=== PATIENT | female | born 1955 | race Caucasian/White ===

== ENCOUNTER → 2023-11-21 14:06 | Outpatient (REF) | payer OTHER, MEDICARE, SELFPAY | LOC: MRI 3T 14:06 | PROVIDERS: ATTENDING PHYSICIAN Anesthesiology | DX: M54.12 Radiculopathy, cervical region (principal) | CPT/HCPCS: 72141 ==

== ENCOUNTER 2024-01-07 10:08 | Emergency (ER) | payer MEDICARE, SELFPAY ==
[2024-01-07 10:15] VITALS: BP 141/81
[2024-01-07 10:48] VITALS: BMI 22.8
--- NOTE | 2024-01-07 10:53 | ED.GENMED ---
History of Present Illness
General
Chief Complaint: Abdominal Pain
Source: patient
Exam Limitations: none
Time Seen by Provider: 01/07/24 10:52
Nursing documentation reviewed up to this point in time: agreed with
History of Present Illness
History of Present Illness:
68 yo female from [place] w h/o GERD, Celiac disease, hysterectomy, R ventral hernia repair with mesh, Anxiety/Bipolar/Schizophrenia presents for one week of constant pain RLQ. Pain relieved when laying flat. Had few diarrheal stools past 2
days, had normal BM today. Denies UTI symptoms. Denies f/c/n/v.
Past History
Past History
ED Past Medical History: Cancer (Ovarian), GERD, Psychiatric (Paranoid schizophrenic) and Other (Arthritis, IBS, celiac disease)
ED Past Surgical History: , Gynecological (hysterectomy), Orthopedic and Other (R ventral hernia repair)
Social History
Tobacco: Non-smoker
Alcohol: None
Personal: Single
Living: group home
Review of Systems
Review of Systems
Allergies reviewed?: Yes
All Other Systems: ROS reviewed and negative except as documented in HPI and ROS
Constitutional: Denies fever
Respiratory: Denies trouble breathing
Cardiac: Denies chest pain
ABD/GI: Reports abdominal pain (RLQ); Denies nausea, vomiting, diarrhea, constipated or anorexia
: Denies dysuria, frequency, difficulty voiding or urgency
Musculoskeletal: Reports no symptoms
Skin: Reports no symptoms
Neurological: Reports no symptoms
Phy Exam
Physical Exam
Physical Exam:
GENERAL: No acute distress. A&Ox3.
CONSTITUTIONAL: Afebrile.
EYES: clear, conjunctivae normal
ENMT: moist mucus membranes, Pharynx nl
RESPIRATORY: Regular respirations, nonlabored, lungs clear.
CARDIOVASCULAR: Regular rate and rhythm, no murmurs, no rubs.
GI: Soft, palpable mass RLQ, nontender, normal BS
MUSCULOSKELETAL: Moves with ease. Well perfused.
SKIN: Warm, dry, pink
PSYCH: Normal mood and affect. Well kept, interactive and appropriate
NEUROLOGIC: Awake, alert and oriented. No focal neurological deficits
Course
Orders/Labs/Results
Orders:
Orders
01/07/24 10:18
IV Insert/Care/Rem.- Treatment PRN
01/07/24 11:05
CT Abd/pelvis W Iv Cont Urgent
Comment:
Reason For Exam: RLQ pain, hx ventral hernia repar there
01/07/24 11:08
Complete Blood Count/With Diff Urgent
Comprehensive Metabolic Panel Urgent
Lipase Urgent
Diphenhydramine [Benadryl] 50 mg IV NOW STA
Hydrocortisone Sod Succinate [Solu-Cortef] 200 mg IV NOW STA
01/07/24 12:55
Urinalysis Reflex To Culture Urgent
Date Specimen was Collected: 01/07/24
Time Specimen was Collected: 12:54
Abnormal Lab Results
01/07/24
11:08
MCH 32.6 H pg
(27.0-31.0)
Absolute Neuts (auto) 7.6 H 10^3/uL
(1.4-6.5)
Absolute Lymphs (auto) 0.6 L 10^3/uL
(1.2-3.4)
Neutrophils % 88.2 H %
(42.2-75.2)
Lymphocytes % 6.6 L %
(20.5-51.1)
Sodium 134 L mmol/L
(135-145)
Chloride 96 L mmol/L
(98-107)
Glucose 130 H mg/dl
(70-99)
Calcium 10.4 H mg/dl
(8.4-10.2)
Albumin 5.1 H g/dl
(3.5-5.0)
01/07/24 11:08
01/07/24 11:08
Vital Signs
Initial and Last Documented VS:
Initial Vital Signs
Temp Pulse Resp BP Pulse Ox
98 F 75 18 141/81 95
01/07/24 10:15 01/07/24 10:15 01/07/24 10:15 01/07/24 10:15 01/07/24 10:15
Last Documented Vital Signs
Temp Pulse Resp BP Pulse Ox
98 F 75 18 119/74 91
01/07/24 10:15 01/07/24 10:15 01/07/24 10:15 01/07/24 13:00 01/07/24 11:27
MDM/Problems Addressed
Differential Diagnosis Includes:
R ventral hernia, appendicitis
MDM/Problems Addressed:
68 yo female from [facility] w h/o GERD, Celiac disease, hysterectomy, R ventral hernia repair with mesh, Anxiety/Bipolar/Schizophrenia presents for one week of constant pain RLQ. Pain relieved when laying flat. Had few diarrheal stools past 2
days, had normal BM today. Denies UTI symptoms. Denies f/c/n/v.
CBC normal
CMP: normal
U/A neg
2:15 p.m.
Abd/Pelvis CT scan with IV contrast radiology report read: IMPRESSION:
1. Diffuse mildly prominent fluid-filled loops of small bowel favored to be on the basis of a nonspecific enteritis. Somewhat limited evaluation in the absence of oral contrast.
2. Colonic diverticulosis.
3. Stable mild intrahepatic and extrahepatic bile duct dilatation. Slightly increased mild main pancreatic duct dilatation. Correlation with laboratory values is recommended.
4. Severe aortobiiliac calcified atherosclerosis.
Patient still concerned because she feels a lump in the right lower quadrant not exactly where her pain is
I reviewed the entire CAT scan report with her and showing her that there is nothing serious or worrisome, she and her sister are still questioning
I called radiology Dr. Archibald and expressed their concern. He read looked at the film and states there is nothing to explain her pain there. He does state he sees the port in her upper right abdomen and it has a catheter that goes down into the
right lower abdomen/mesentery and she may be palpating that.
I went back into the patient's sister and explained this to them, they seemed unaware that the catheter went down into the lower abdomen.
I instructed them to follow-up with PCP if pain persist beyond 1 week as she may have enteritis.
At discharge, pt ambulated out with normal gait with sister
*Critical Care Note
Total Time (30-74mins, 75-104mins- exclusive of procedures): Not Applicable
ED Attending Note
-
Portions of this chart may have been created with voice recognition software.� Occasional wrong word or��sound alike� substitutions may have occurred due to the inherent limitations of voice recognition software.
Discharge Plan
Departure
Patient Disposition: Longterm/SNF
Date of Disposition: 01/07/24
Time of Disposition: 14:35
Patient with high blood pressure during this ER visit?: No
Condition: Good
Discharge Problem:
Abdominal pain, Enteritis
Instructions: Abdominal Pain
Prescriptions:
No Action
celecoxib 200 mg Capsule
200 mg PO BID
polyethylene glycol 3350 17 gram Powder In Packet
17 g PO DAILY PRN (Reason: constipation)
ibuprofen 200 mg Capsule
400 mg PO Q6H PRN (Reason: pain)
sertraline 100 mg Tablet
200 mg PO DAILY
lorazepam 0.5 mg Tablet
0.25 mg PO DAILY
docusate sodium 100 mg Capsule
100 mg PO BID
morphine 15 mg Tablet Extended Release
15 mg PO Q12H
gabapentin 100 mg Capsule
100 mg PO HS
nystatin 100,000 unit/gram Powder
1 applic TOPICAL BID
lorazepam 1 mg Tablet
0.5 mg PO HS
fluticasone propionate 50 mcg/actuation [place],Suspension
1 spray INTRANASAL DAILY
loratadine 10 mg Tablet
10 mg PO DAILY
aripiprazole 10 mg Tablet
10 mg PO HS
memantine 10 mg Tablet
10 mg PO BID
lubiprostone 8 mcg Capsule
8 mcg PO BID
lidocaine HCl-menthol 4-1 % Adhesive Patch,Medicated
1 patch TOPICAL DAILY
Rx Instructions:
back of neck
Referrals:
Melo Miller MD [Family Provider] - As needed
Activity Restrictions/Additional Instructions:
As we discussed, nothing worrisome in your work up here today
You may have a viral inflammation of your bowel that should improve within a week.
The port in your right upper abdomen has a catheter that extends down the right side of your abdomen down to the area where your scar is. Maybe the 'lump' you feel is that.
See your doctor for recheck if you are still having abdominal pain after one week
Interventions
Interventions:
*Risk Screen - Suicide Last Done: 01/07/24 10:15
*Neglect/Abuse Screening Last Done: 01/07/24 10:15
ED- Fall Risk Assessment Last Done: 01/07/24 10:49
*ED COVID-19 Vaccine History Last Done: 01/07/24 10:48
*Nursing Disposition Last Done: 01/07/24 14:49
QC-[id number]-[id number] Assessment Last Done: 01/07/24 10:59
Discharge Date and Time
Discharge Date/Time: 01/07/24 14:49
Print Language: ITALIAN
[2024-01-07 11:08] VITALS: BP 124/74
[2024-01-07 11:16] LABS: % Basophils 0.6 % (0-2); % Immature Granulocytes 0.3 % (0-0.5); % Lymphocytes 6.6 % (20.5-51.1); % Monocytes 4.3 % (1.7-9.3); % Neutrophils 88.2 % (42.2-75.2); Absolute Basophils 0.1 10^3/uL (0-0.2); Absolute Lymphocytes 0.6 10^3/uL (1.2-3.4); Absolute Monocytes 0.4 10^3/uL (0.1-0.6); Absolute Neutrophils 7.6 10^3/uL (1.4-6.5); Hematocrit 44.6 % (37.0-47.0); Hemoglobin 15.9 g/dL (12.0-16.0); Mean Corp Hgb Conc. 35.7 g/dL (33.0-37.0); Mean Corpuscular Hgb 32.6 pg (27.0-31.0); Mean Corpuscular Volume 91.6 fL (81.0-99.0); Nucleated Red Blood Cells % 0 %; Platelet Count 207 10^3/uL (130-400); Red Blood Cell Count 4.87 10^6/uL (4.20-5.40); Red Cell Dist. Width 11.9 % (11.5-14.5); White Blood Cell Count 8.6 10^3/uL (4.8-10.8)
[2024-01-07] MEDS: BENADRYL 50 MG IV (11:21)
[2024-01-07] MEDS: SOLU-CORTEF 200 MG IV (11:21)
[2024-01-07 11:31] LABS: ALT (SGPT) 19 U/L (0-35); AST (SGOT) 30 U/L (14-36); Albumin 5.1 g/dl (3.5-5.0); Alkaline Phosphatase 73 U/L (38-126); Blood Urea Nitrogen 15 mg/dl (7-17); Calcium 10.4 mg/dl (8.4-10.2); Carbon Dioxide 27 mmol/L (22-30); Chloride 96 mmol/L (98-107); Estimated Creatinine Clearance 73 ml/min; Glucose 130 mg/dl (70-99); Lipase 75 U/L (23-300); Sodium 134 mmol/L (135-145); Total Bilirubin 1.2 mg/dl (0.2-1.3); Total Protein 7.4 g/dl (6.3-8.2); eGFR > 60.00
[2024-01-07 12:56] VITALS: BP 133/73
[2024-01-07 13:00] VITALS: BP 119/74
[2024-01-07 13:05] LABS: Urine Albumin Negative (Neg - Trace); Urine Bilirubin Negative (Negative); Urine Character Clear (Clear); Urine Color Yellow; Urine Glucose Negative (Negative); Urine Ketone Negative (Negative); Urine Leukocyte Negative (Negative); Urine Nitrite Negative (Negative); Urine Occult Blood Negative (Negative); Urine Specific Gravity 1.015 (<1.030); Urine Urobilinogen Negative (Neg - 1+)
== END 2024-01-07 14:49 ==
LOC: EMR 10:08
PROVIDERS: Registered Nurse; EMERGENCY PHYSICIAN Emergency Medicine; FAMILY PHYSICIAN Internal Medicine
DX: K52.9 Noninfective gastroenteritis and colitis, unspecified (principal); R10.31 Right lower quadrant pain; K21.9 Gastro-esophageal reflux disease without esophagitis; K90.0 Celiac disease
CPT/HCPCS: 99285; 96374; 96375; 74177; 80053; 81003; 83690; 85025; Q9967

== ENCOUNTER 2024-03-20 06:35 | Day surgery (SDC) | payer MEDICARE, SELFPAY ==
[2024-03-20 10:03] VITALS: BP 112/70
[2024-03-20] MEDS: TYLENOL 1000 MG PO (10:28)
[2024-03-20 10:30] VITALS: BMI 22.8
[2024-03-20] MEDS: NORMOSOL-R/PLASMALYTE-A 1000 IV (10:35)
[2024-03-20 13:46] VITALS: BP 119/52
[2024-03-20 14:00] VITALS: BP 126/115
[2024-03-20 14:15] VITALS: BP 133/74
== END 2024-03-20 14:37 ==
LOC: SDS 06:35
PROVIDERS: ATTENDING PHYSICIAN Surgery
PROC: 0WPG33Z Removal of Infusion Device from Peritoneal Cavity, Percutaneous Approach (ICD-10-PCS; 2024-03-20)
PROC: 0JPT3WZ Removal of Totally Implantable Vascular Access Device from Trunk Subcutaneous Tissue and Fascia, Percutaneous Approach (ICD-10-PCS; 2024-03-20)
DX: C56.9 Malignant neoplasm of unspecified ovary (principal); C18.9 Malignant neoplasm of colon, unspecified; F20.0 Paranoid schizophrenia; K58.9 Irritable bowel syndrome, unspecified
CPT/HCPCS: 36590

== ENCOUNTER 2024-09-17 16:58 | Inpatient (IN) | payer MEDICARE, SELFPAY ==
[2024-09-17] VITALS (12 sets, daily range): BP systolic 113–176; BP diastolic 47–90; BMI 24.6
--- NOTE | 2024-09-17 10:10 | ED.GENMED ---
History of Present Illness
General
Chief Complaint: Cough
Source: patient
Exam Limitations: none
Time Seen by Provider: 09/17/24 10:00
History of Present Illness
History of Present Illness:
69-year-old female sudden onset of burning in her chest shortness of breath all started with swallowing her pills feeling like a pill got stuck and aspirated. This started hours ago. Patient was fine prior to this episode.
Past History
Past History
ED Past Medical History: Cancer (Ovarian), GERD, Psychiatric (Paranoid schizophrenic) and Other (Arthritis, IBS, celiac disease)
ED Past Surgical History: , Gynecological (hysterectomy), Orthopedic and Other (R ventral hernia repair)
Social History
Tobacco: Non-smoker
Alcohol: None
Personal: Single
Living: senior care
Phy Exam
Physical Exam
Physical Exam:
GENERAL: Alert and oriented. Audible wheezing and rhonchi noted.
EYE: Orbits normal.
NECK: Supple, no significant adenopathy.
ENT: Pharynx without erythema
CARDIAC: Regular rate and rhythm without any obvious murmurs.
LUNGS: Moderate tachypnea with audible expiratory wheezing and rhonchi
ABDOMEN: Soft, without focal tenderness or distention
NEUROLOGICAL: Alert and oriented , grossly non-focal
SKIN: Warm and dry, no rash or lesion, no discoloration, skin intact.
MUSCULOSKELETAL: No edema,no deformity.Good color
PSYCH: Normal and appropriate interaction.
Course
Orders/Labs/Results
Orders:
Orders
09/17/24 Lunch
Regular
09/17/24 10:08
Electrocardiogram (*1) Stat
Reason for Study: Other
Other Reason for Exam: chest pain
Cardiac Monitoring- Treatment ONCE
EKG- Treatment ONCE
IV Insert/Care/Rem.- Treatment PRN
Albuterol Sulfate [Ventolin Nebules] 7.5 mg INH R NOW STA
Ipratropium/Albuterol Sulfate [Duoneb] 3 ml INH R NOW ONE
CR Chest Portable - 1 View Urgent
Comment:
Reason For Exam: Sudden shortness of breath/aspiration
Reason Study Needs to be Portable: Patient Unstable
Pulse Ox/cont/shift [RESP] Stat
Quantity: 1
09/17/24 10:24
Ipratropium Nebs [Atrovent Nebules] 0.5 mg .ROUTE .STK-MED ONE
09/17/24 10:40
Basic Metabolic Panel Urgent
09/17/24 10:49
Complete Blood Count/With Diff Urgent
NT-proBNP Urgent
Troponin I Urgent
09/17/24 10:59
Dexamethasone Sod Phosphate [Decadron] 8 mg IV NOW STA
09/17/24 13:37
Albuterol Sulfate [Ventolin Nebules] 7.5 mg INH R NOW STA
O2 Therapy [RESP] Stat
Nasal Cannula Liter Flow: 2 LPM
Titrate/Wean O2 to maintain O2 sat greater than (%): 94
09/17/24 15:42
Admit/Transfer Patient As Directed
Co-Sign Provider:
Level of Care: Inpatient admission
Assign to:: Telemetry
Physician / Group: Leah Rudd
Diagnosis: Reactive airway disease following pill aspiration
Reason for Telemetry: Arrhythmia
Date to Stop Telemetry: 09/20/24
Time to Stop Telemetry: 11:00
Reason for Hospitalization: Reactive airway disease following pill aspiration
Expected length of stay greater than two midnights?: Yes
ELOS- Estimated Length of Stay in days: 2
I certify the patient meets the requirements for IP care: Yes
09/17/24 15:43
PRN Pain Medication Management As Directed
May give lesser potent ordered pain med per pt: Yes
preference::
Protocol:: Medication orders for pain may be administered in a
manner that supports deferring to patient preference
when the pt is:
- Requesting an ordered lesser potent pain medication.
Least to most potent pain medications are defined
as: acetaminophen < NSAID < tramadol < opioids
(morphine, oxycodone, hydromorphone).
- Requesting a lesser dose of the same medication IF
ORDERED.
- Requesting a less intrusive route of administration
if both routes are prescribed by the provider (PO <
IV).
09/17/24 15:47
Code Status As Directed
Resuscitation Status: Full Code
09/17/24 17:42
Acetaminophen [Tylenol] 650 mg PO Q4HPRN PRN
Albuterol Nebs [Ventolin Nebules] 2.5 mg INH R Q4HPRN PRN
Bisacodyl [Dulcolax] 10 mg RECTAL [id number] PRN
Docusate Sodium [Colace] 100 mg PO BIDPRN PRN constipation
Docusate W/Senna [Senokot-S] 1 tablet PO BIDPRN PRN
Ipratropium/Albuterol Sulfate [Duoneb] 3 ml INH R QID
Polyethylene Glycol Powder [Miralax] 17 grams PO DAILYPRN PRN
diclofenac sodium 40 drop TOPICAL Q6HPRN PRN
09/17/24 17:42
Activity As Directed
Activity Level: With Assistance
Vital Signs As Directed
Frequency: Per unit guidelines
DX Deep Vein Thrombosis Video Routine
09/17/24 18:00
Dexamethasone Sod Phosphate [Decadron] 4 mg IV Q6H
Enoxaparin Sodium [Lovenox] 40 mg SC QPM
09/17/24 20:00
Lorazepam [Ativan] 0.5 mg PO BID
Memantine HCl [Namenda] 10 mg PO BID
Morphine Sulfate Extended Rel. [Ms Contin (Extended Release)] 15 mg PO Q12
lubiprostone 8 mcg PO BID
09/17/24 22:00
Aripiprazole [Abilify] 10 mg PO HS
Gabapentin [Neurontin] 100 mg PO HS
Mirtazapine [Remeron] 22.5 mg PO HS
09/18/24 06:26
Complete Blood Count/No Diff IN AM
09/18/24 08:00
Lidocaine [Lidocaine 4% Patch] 1 patch TOPICAL DAILY
Loratadine [Claritin] 10 mg PO DAILY
Meloxicam [Mobic] 15 mg PO DAILY
Polyethylene Glycol Powder [Miralax] 17 grams PO DAILY
Sertraline HCl [Zoloft] 200 mg PO DAILY
09/19/24 08:22
Complete Blood Count/No Diff IN AM
09/20/24 06:41
Basic Metabolic Panel IN AM
Complete Blood Count/No Diff IN AM
09/20/24 11:00
DC Protocol for Telemetry ONCE
Abnormal Lab Results
09/17/24 09/17/24
10:40 10:49
MCH 31.7 H pg
(27.0-31.0)
Absolute Neuts (auto) 8.0 H 10^3/uL
(1.4-6.5)
Absolute Lymphs (auto) 0.4 L 10^3/uL
(1.2-3.4)
Neutrophils % 89.4 H %
(42.2-75.2)
Lymphocytes % 4.8 L %
(20.5-51.1)
Sodium 131 L mmol/L
(135-145)
Chloride 94 L mmol/L
(98-107)
BUN 19 H mg/dl
(7-17)
Glucose 122 H mg/dl
(70-99)
09/17/24 10:49
09/17/24 10:49
Vital Signs
Initial and Last Documented VS:
Initial Vital Signs
Temp Pulse Resp BP Pulse Ox
98.0 F 87 16 176/90 98
09/17/24 09:29 09/17/24 09:29 09/17/24 09:29 09/17/24 09:29 09/17/24 09:29
Last Documented Vital Signs
Temp Pulse Resp BP Pulse Ox
98.7 F 94 18 136/75 95
09/21/24 13:51 09/21/24 13:51 09/21/24 13:51 09/21/24 13:51 09/21/24 13:51
MDM/Problems Addressed
Differential Diagnosis Includes:
Patient in moderate respiratory distress. Audible wheezing and rhonchi. All started suddenly with swallowing the pill. She has no drooling or stridor. She has a slight hoarseness to her voice. Will start with x-ray labs respiratory nebulizers.
Workup in progress
*Pulse Oximetry
SaO2: 98
Oxygen Mode of Delivery: Room air
Patient hypoxic: no
*EKG
Interpreted by ED Provider?: Yes
Interpretation: normal
Comparison EKG: no changes
Heart Rate: 82
Rate: normal
Rhythm: sinus
[place]: normal axis
Interval: normal interval
QRS Pattern: normal QRS
Ischemia: no ischemia
*Wort Extractor Interpretation
Rate: normal
Interpretation: normal
Heart Rate: 80
Rhythm: sinus
*Critical Care Note
Total Time (30-74mins, 75-104mins- exclusive of procedures): 40
Update Note
Update Note:
1100.. Patient rechecked. Appears much more comfortable still with diffuse expiratory wheezing however.
1137... Doing better but still with expiratory wheezing. Warrants inpatient management
1340.... Patient rechecked. Awaiting admission. Appears improved from initial arrival however pulse ox's are running 90 to 91%. Still has diffuse wheezing. Will place on oxygen and repeat nebulizers
ED Attending Note
-
Portions of this chart may have been created with voice recognition software.� Occasional wrong word or��sound alike� substitutions may have occurred due to the inherent limitations of voice recognition software.
Discharge Plan
Departure
Patient Disposition: Admit
Date of Disposition: 09/17/24
Time of Disposition: 11:37
Presentation/result/management discussed w/ accepting MD/DO: Hospitalist
Discharge Problem:
Respiratory distress, Pill aspiration, Triggering reactive airway
Interventions
Interventions:
*Risk Screen - Suicide Last Done: 09/17/24 09:38
*General Assessment Last Done: 09/17/24 09:38
*Neglect/Abuse Screening Last Done: 09/17/24 09:38
*ED COVID-19 Vaccine History Last Done: 09/17/24 17:49
*Nursing Disposition Last Done: 09/17/24 17:47
ED- Pulmonary Assessment Last Done: 09/17/24 10:35
Discharge Date and Time
Discharge Date/Time: 09/17/24 17:48
[2024-09-17] MEDS: VENTOLIN NEBULES 7.5 MG INH ×2 (10:34→13:44)
[2024-09-17] MEDS: DUONEB 3 ML INH ×2 (10:34→19:15)
[2024-09-17 10:59] LABS: Hematocrit 44.1 % (37.0-47.0); Hemoglobin 15.2 g/dL (12.0-16.0); Mean Corp Hgb Conc. 34.5 g/dL (33.0-37.0); Mean Corpuscular Volume 92.1 fL (81.0-99.0); Nucleated Red Blood Cells % 0 %; Platelet Count 179 10^3/uL (130-400); Red Cell Dist. Width 11.9 % (11.5-14.5)
[2024-09-17 11:34] LABS: Troponin I < 0.012 ng/ml
[2024-09-17] MEDS: DECADRON 8 MG IV (11:47)
--- NOTE | 2024-09-17 12:05 | HPS.HSE ---
Family Physician
-
Family Physician: SUSAN LINARES MD
Chief Complaint
-
SOB/wheezing
History of Present Illness
69F GERD Schizophrenia Arthritis IBS Hysterectomy Hernia Repair presents w/ sob wheezing following aspiration event at home involving her morning pill medications. Reported pill 'going down wrong pipe' resulting in coughing sob wheezing prompting
ED evaluation- was in her usual state of health prior to aspiration event. CXR noted no acute abn's. Patient was treated with nebulizer treatments and IV decadron leading to improvement of symptoms though not resolved. Stable vital signs on
oxygen supplementation.
Medical History
Past Medical History
Past Medical History: Reports Other
Additional Past Medical History:
as above
Past Surgical History: Reports Other
Social History
Tobacco: Former Smoker
Alcohol: None
Drug: None
Personal: Single
Employment: Retired
Family History
Family History: Not pertinent (reviewed)
Allergies / Home Medications
Allergies reflects when Allergies were last updated in [email or web address].
Home Medications with original date entered in [email or web address]
Allergy/Medication List:
Allergies
Allergy/AdvReac Type Severity Reaction Status Date / Time
cat dander Allergy Unknown Verified 09/17/24 09:41
gluten Allergy Unknown Verified 09/17/24 09:41
iodine Allergy Unknown Verified 09/17/24 09:41
Phenothiazines Allergy Unknown Verified 09/17/24 09:41
shellfish derived Allergy Unknown Verified 09/17/24 09:41
tetracycline Allergy Unknown Verified 09/17/24 09:41
Home Medications
aripiprazole 10 mg tablet 10 mg PO HS 01/07/24
docusate sodium 100 mg capsule 100 mg PO BIDPRN PRN constipation 01/07/24
fluticasone propionate 50 mcg/actuation nasal spray,suspension 1 spray intranasal DAILY 01/07/24
gabapentin 100 mg capsule 100 mg PO HS 01/07/24
loratadine 10 mg tablet 10 mg PO DAILY 01/07/24
lorazepam 0.5 mg tablet 0.5 mg PO BID 01/07/24
lubiprostone 8 mcg capsule 8 mcg PO BID 01/07/24
memantine 10 mg tablet 10 mg PO BID 01/07/24
polyethylene glycol 3350 17 gram oral powder packet 17 g PO DAILY constipation 01/07/24
lidocaine 4 %-menthol 4 % topical patch 1 patch topical DAILY back of neck 03/18/24
mirtazapine 15 mg tablet 22.5 mg PO HS 03/18/24
sertraline 100 mg tablet 200 mg PO DAILY 03/18/24
diclofenac sodium 1.5 % topical drops 40 drp topical Q6HPRN PRN back of neck pain 09/17/24
meloxicam 15 mg tablet 15 mg PO DAILY 09/17/24
morphine 15 mg tablet,extended release 15 mg PO Q12H 09/17/24
Review of Systems
-
A 12 point ROS was completed and negative except as noted: Yes
Constitutional: Reports Other (as below)
Physical Exam
Vital Signs
Vital Signs
Temp Pulse Resp BP Pulse Ox
98.0 F 88 25 148/76 95
09/17/24 09:29 09/17/24 11:45 09/17/24 11:45 09/17/24 11:00 09/17/24 11:45
Physical Exam
General: Other (as below)
Laboratory Results
-
09/17/24 10:49
09/17/24 10:49
Laboratory Results
Troponin I < 0.012 ng/ml 09/17/24 10:49
Impression/Plan
-
ROS
General: Denies fever chills night sweats unexpected weight loss
Neuro: Denies seizure shaking loss of consciousness dizziness vertigo
Psych: denies depression hallucinations confusion manic episodes
Endocrine: Denies polyuria polydipsia polyphagia heat/cold intolerance
HEENT: Denies blindness visual disturbances epistaxis
Pulmonary: SOB wheezing
Cardiovascular: denies chest pain palpitations leg swelling
Hematology: denies signs symptoms of anemia easy bruising/bleeding
Gastrointestinal: denies nausea vomiting diarrhea constipation hematemesis hematochezia melena
Genito-Urinary: denies retention incontinence dysuria
Musculoskeletal: denies joint pain weakness
Dermatology: denies rash laceration bruising
Physical Exam
General: No pallor, cyanosis, or jaundice.
HEENT: Throat clear. PERRLA Normocephalic atraumatic
NECK: Supple. No JVD Carotid Bruits
RESPIRATORY: diffusely wheezing on oxygen supplementation
CVS: S1, S2 normal. RRR. No murmur, rub or gallop.
ABDOMEN: Soft, non-tender. No distension. BS+/normal.
EXTREMITIES: No peripheral cyanosis or edema.
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
IMPRESSION:
69F GERD Schizophrenia Arthritis Chronic Pain IBS Hysterectomy Hernia Repair presents w/ sob wheezing following aspiration event at home involving her morning pill medications. Reported pill 'going down wrong pipe' resulting in coughing sob
wheezing prompting ED evaluation- was in her usual state of health prior to aspiration event. CXR noted no acute abn's. Patient was treated with nebulizer treatments and IV decadron leading to improvement of symptoms though not resolved. Stable
vital signs on oxygen supplementation.
PLAN:
#Pill aspiration event
#SOB wheezing concerning for reactive airway dz
Tele admit
denies hx asthma, former smoker
CXR no acute abn's, follow up repeat in AM
Pulm eval
Duoneb R QID
albuterol prn
received 8 mg IV Decadron in ED
IV decadron 4 mg Q6h
Incentive Spirometer
Speech eval
aspiration precautions
#Chronic Pain
#Arthritis
cont home PO Morphine Neurontin Meloxicam
prn Tylenol
#Schizophrenia
cont home abilify, mirtazapine, ativan, sertraline
#IBS
cont home lubiprostone (patient's own med if necessary)
DVT ppx Lovenox
Full Code
I spent a total of 80 minutes with the patient or on the floor. More than 50% of this time involved counseling and coordination of care.
[2024-09-17 12:18] LABS: Blood Urea Nitrogen 19 mg/dl (7-17); Calcium 9.3 mg/dl (8.4-10.2); Carbon Dioxide 29 mmol/L (22-30); Chloride 94 mmol/L (98-107); Estimated Creatinine Clearance 84 ml/min; Glucose 122 mg/dl (70-99); Sodium 131 mmol/L (135-145); eGFR > 60.00
[2024-09-17] MEDS: TYLENOL 650 MG PO (18:04)
[2024-09-17] MEDS: DECADRON 4 MG IV ×2 (18:04→23:59)
[2024-09-17] MEDS: LOVENOX 40 MG SC (18:04)
[2024-09-17] MEDS: DUONEB INH (18:42)
[2024-09-17] MEDS: ATIVAN 0.5 MG PO (19:53)
[2024-09-17] MEDS: NAMENDA 10 MG PO (19:54)
[2024-09-17] MEDS: MS CONTIN (EXTENDED RELEASE) 15 MG PO (19:54)
[2024-09-17] MEDS: ABILIFY 10 MG PO (22:13)
[2024-09-17] MEDS: REMERON 22.5 MG PO (22:14)
[2024-09-17] MEDS: NEURONTIN 100 MG PO (22:14)
[2024-09-18 03:40] VITALS: BP 128/71
[2024-09-18] MEDS: DECADRON 4 MG IV ×4 (05:59→23:47)
[2024-09-18 06:44] LABS: Hematocrit 41.4 % (37.0-47.0); Hemoglobin 14.5 g/dL (12.0-16.0); Mean Corp Hgb Conc. 35.0 g/dL (33.0-37.0); Mean Corpuscular Volume 91.2 fL (81.0-99.0); Platelet Count 189 10^3/uL (130-400); Red Cell Dist. Width 11.9 % (11.5-14.5)
[2024-09-18 07:11] LABS: Blood Urea Nitrogen 14 mg/dl (7-17); Calcium 10.5 mg/dl (8.4-10.2); Carbon Dioxide 30 mmol/L (22-30); Chloride 99 mmol/L (98-107); Estimated Creatinine Clearance 84 ml/min; Glucose 138 mg/dl (70-99); Magnesium 1.8 mg/dl (1.6-2.3); Potassium 4.9 mmol/L (3.5-5.1); Sodium 135 mmol/L (135-145); eGFR > 60.00
--- NOTE | 2024-09-18 07:24 | W.PN.HOSP.TC ---
Today's Communication/Plan
-
Augmentin
cont steroids bronchodilators
wean O2 supplementation as tolerated
mucinex, prn robitussin
Pain control
Assessment / Plan
Assessment / Plan
Physical Exam
General: No pallor, cyanosis, or jaundice.
HEENT: Throat clear. PERRLA Normocephalic atraumatic Maxillary sinuses tender to palpation
NECK: Supple. No JVD Carotid Bruits, cervical lymphadenopathy noted
RESPIRATORY: diffusely wheezing on oxygen supplementation
CVS: S1, S2 normal. RRR. No murmur, rub or gallop.
ABDOMEN: Soft, non-tender. No distension. BS+/normal.
EXTREMITIES: No peripheral cyanosis or edema.
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
IMPRESSION:
69F [facility] GERD Schizophrenia Arthritis Chronic Pain IBS Hysterectomy Hernia Repair presents w/ sob wheezing following aspiration event at home involving her morning pill medications. Reported pill 'going down wrong pipe'
resulting in coughing sob wheezing prompting ED evaluation- was in her usual state of health prior to aspiration event. CXR noted no acute abn's. Patient was treated with nebulizer treatments and IV decadron leading to improvement of symptoms
though not resolved. Stable vital signs on oxygen supplementation.
PLAN:
#Pill aspiration event
#SOB wheezing concerning for reactive airway dz
#Aspiration PNA
#Sinusitis
#post-nasal drip
#sore throat
Tele admit
denies hx asthma, Former smoker
wean O2 supplementation as tolerated
CXR no acute abn's, follow up repeat in AM noted mild RLL PNA (correlates with aspiration hx)
mild leukocytosis, afebrile, Augmentin 875 mg BID started 09/18
Pulm eval
Duoneb R QID albuterol prn
IV Decadron 4 mg Q6h
Incentive Spirometer, Acapella
Speech eval appreciated appropriate regular diet
aspiration precautions
Cepacol prn
sputum cx
Mucinex, prn Robitussin
[place] mist Nasal spray
Claritin
#Chronic Pain
#Arthritis
cont home PO Morphine Neurontin Meloxicam
prn Tylenol, Ibuprofen
#Schizophrenia
cont home abilify, mirtazapine, ativan, sertraline
#IBS
cont home lubiprostone (patient's own med if necessary)
DVT ppx Lovenox
Full Code
I spent a total of 50 minutes with the patient or on the floor. More than 50% of this time involved counseling and coordination of care.
Anticipated Discharge: 24 - 48 hours
Subjective/Interval History
-
Date of Service: September 18, 2024
no acute distress sitting up comfortably in bed. Oxygen supplementation weaning down. reports sore throat and cough w/ productive sputum. Also reports tenderness sinusitis.
Objective Data
-
Labs:
Laboratory Results
09/18/24
06:26
WBC 12.7 H
Hgb 14.5
Hct 41.4
Plt Count 189
Sodium 135
Potassium 4.9
Chloride 99
Carbon Dioxide 30
BUN 14
Creatinine 0.6
Glucose 138 H
Calcium 10.5 H
Vital Signs:
Vital Signs
Temp Pulse Resp BP Pulse Ox
97.9 F 76 16 128/71 97
09/18/24 03:40 09/18/24 03:40 09/18/24 03:40 09/18/24 03:40 09/18/24 03:40
I&O
09/17/24 09/18/24 09/19/24
06:59 06:59 06:59
Intake Total 480 / 480
Balance 480 / 480
[2024-09-18] MEDS: DUONEB 3 ML INH ×4 (07:31→19:11)
[2024-09-18] MEDS: MS CONTIN (EXTENDED RELEASE) 15 MG PO ×2 (07:32→19:45)
[2024-09-18] MEDS: NAMENDA 10 MG PO ×2 (07:32→20:35)
[2024-09-18] MEDS: LIDOCAINE 4% PATCH 1 PATCH TOPICAL (07:32)
[2024-09-18] MEDS: ATIVAN 0.5 MG PO ×2 (07:32→19:44)
[2024-09-18] MEDS: CLARITIN 10 MG PO (07:32)
[2024-09-18] MEDS: MOBIC 15 MG PO (07:32)
[2024-09-18] MEDS: MIRALAX PO (07:32)
[2024-09-18] MEDS: ZOLOFT 200 MG PO (07:32)
[2024-09-18 07:45] VITALS: BP 135/59
--- NOTE | 2024-09-18 09:40 | PTOTSP ---
Speech Therapy Evaluation:
Pt presents with functional oropharyngeal swallow at bedside. INTERNATIONAL TRADE COMPLIANCE MANAGER service consulted 2/2 pill aspiration, in which pt reported was an isolated event. She denied trouble with pills one at a time. Vocal quality hoarse and throat sore due to pt reported
hacking during aspiration event. CXR now with RLL PNA, WBC elevated, and pt on 3LO2 via nasal cannula. Pt passed 3oz swallow screen and denied previous hx of dysphagia or pneumonia
Recommend:
1. Regular solids and thin liquids
2. Meds as tolerated one at a time
3. General aspiration precautions
4. INTERNATIONAL TRADE COMPLIANCE MANAGER to follow to monitor tolerance of diet, likely brief
--- NOTE | 2024-09-18 10:40 | CM ---
Patient seen at bedside
IA completed
Resides at [facility]
PLOF: independent, no assistive device
Denies DME
Denies VN/Rehab
Denies insecurities
Spoke with Cyndi at [facility] & updated
PCP: Sandra Hale
Pharmacy: [facility]
PLAN: [facility] when stable
Report: [phone] Fax #: [phone]
[2024-09-18 11:11] VITALS: BP 134/65
[2024-09-18 12:35] LABS: ALT (SGPT) 18 U/L (0-35); AST (SGOT) 27 U/L (14-36); Albumin 4.9 g/dl (3.5-5.0); Alkaline Phosphatase 61 U/L (38-126); Total Protein 7.1 g/dl (6.3-8.2)
[2024-09-18] MEDS: MUCINEX 600 MG PO ×2 (13:33→20:35)
[2024-09-18] MEDS: AUGMENTIN 250 MG/5 ML 875 MG PO ×2 (13:33→20:56)
[2024-09-18] MEDS: OCEAN, SALINE MIST 2 SPRAYS NASAL ×3 (13:33→22:07)
[2024-09-18] MEDS: PROTONIX 40 MG PO (13:33)
[2024-09-18 15:47] VITALS: BP 135/71
[2024-09-18] MEDS: LOVENOX SC (17:31)
[2024-09-18 19:32] VITALS: BP 129/65
[2024-09-18] MEDS: ANESTHETIC LOZENGE 1 LOZENGE PO (21:00)
[2024-09-18] MEDS: ABILIFY 10 MG PO (22:02)
[2024-09-18] MEDS: NEURONTIN 100 MG PO (22:02)
[2024-09-18] MEDS: REMERON 22.5 MG PO (22:06)
[2024-09-18 23:16] VITALS: BP 145/66
[2024-09-19] VITALS (7 sets, daily range): BP systolic 116–152; BP diastolic 60–76; PULSE 90; O2SAT 97
[2024-09-19] MEDS: DECADRON 4 MG IV (05:49)
--- NOTE | 2024-09-19 06:48 | W.PN.HOSP.TC ---
Today's Communication/Plan
-
decadron switched to PO prednisone
cont bronchodilators antibiotic
NPO after midnight for possible benefit bronchoscopy as per Pulm
Assessment / Plan
Assessment / Plan
Physical Exam
General: No pallor, cyanosis, or jaundice.
HEENT: Throat clear. PERRLA Normocephalic atraumatic Maxillary sinuses tender to palpation
NECK: Supple. No JVD Carotid Bruits, cervical lymphadenopathy noted
RESPIRATORY: diffusely wheezing on oxygen supplementation
CVS: S1, S2 normal. RRR. No murmur, rub or gallop.
ABDOMEN: Soft, non-tender. No distension. BS+/normal.
EXTREMITIES: No peripheral cyanosis or edema.
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
IMPRESSION:
69F [facility] GERD Schizophrenia Arthritis Chronic Pain IBS Hysterectomy Hernia Repair presents w/ sob wheezing following aspiration event at home involving her morning pill medications. Reported pill 'going down wrong pipe'
resulting in coughing sob wheezing prompting ED evaluation- was in her usual state of health prior to aspiration event. CXR noted no acute abn's. Patient was treated with nebulizer treatments and IV decadron leading to improvement of symptoms
though not resolved. Stable vital signs on oxygen supplementation.
PLAN:
#Pill aspiration event (later reported coughing out the aspirated pill, few days following admission)
#SOB wheezing concerning for reactive airway dz
#Acute hypoxic respiratory failure
#Aspiration PNA
#Sinusitis
#post-nasal drip
#sore throat
Tele admit
denies hx asthma, Former smoker
wean O2 supplementation as tolerated
CXR no acute abn's, follow up repeat in AM noted mild RLL PNA (correlates with aspiration hx)
mild leukocytosis, afebrile, Augmentin 875 mg BID started 09/18
Pulm bertram appreciated npo after midnight for possible benefit bronchoscopy tomorrow Wednesday 09/20
CT chest appreciated RLL consolidation bronchus occlusion, 4mm peripheral lung nodule (follow up CT in 12 mo recommended), Compression fx's T8 (new) and T12 (present since 2021).
Duoneb R QID albuterol prn
IV Decadron 4 mg Q6h transitioned to PO prednisone 40 mg daily
Incentive Spirometer, Acapella
Speech eval appreciated appropriate regular diet
aspiration precautions
Cepacol prn
sputum cx
Mucinex, prn Robitussin
[place] mist Nasal spray
Claritin
#Chronic Pain
#Arthritis
cont home PO Morphine Neurontin Meloxicam
prn Tylenol, Ibuprofen
#Schizophrenia
cont home abilify, mirtazapine, ativan, sertraline
#IBS
cont home lubiprostone (patient's own med if necessary)
DVT ppx Lovenox
Full Code
I spent a total of 45 minutes with the patient or on the floor. More than 50% of this time involved counseling and coordination of care.
Anticipated Discharge: 24 - 48 hours
Subjective/Interval History
-
Date of Service: September 19, 2024
Reports feeling better, coughed up her aspirated pill. Stable respiratory status on room air.
Objective Data
-
Labs:
Laboratory Results
09/19/24
06:00
WBC Pending
Hgb Pending
Hct Pending
Plt Count Pending
Sodium Pending
Potassium Pending
Chloride Pending
Carbon Dioxide Pending
BUN Pending
Creatinine Pending
Glucose Pending
Calcium Pending
Vital Signs:
Vital Signs
Temp Pulse Resp BP Pulse Ox
97.4 F 73 16 126/65 97
09/19/24 03:30 09/19/24 03:30 09/19/24 03:30 09/19/24 03:30 09/19/24 03:30
I&O
09/17/24 09/18/24 09/19/24
06:59 06:59 06:59
Intake Total 480 / 480 1919
Balance 480 / 480 1919
[2024-09-19] MEDS: DUONEB 3 ML INH ×4 (07:21→19:46)
[2024-09-19] MEDS: LIDOCAINE 4% PATCH 1 PATCH TOPICAL (07:33)
[2024-09-19] MEDS: PROTONIX 40 MG PO (07:33)
[2024-09-19] MEDS: CLARITIN 10 MG PO (07:33)
[2024-09-19] MEDS: AUGMENTIN 250 MG/5 ML 875 MG PO ×2 (07:33→20:27)
[2024-09-19] MEDS: ZOLOFT 200 MG PO (07:33)
[2024-09-19] MEDS: MUCINEX 600 MG PO ×2 (07:34→20:27)
[2024-09-19] MEDS: MOBIC 15 MG PO (07:34)
[2024-09-19] MEDS: NAMENDA 10 MG PO ×2 (07:34→20:27)
[2024-09-19] MEDS: ATIVAN 0.5 MG PO ×2 (07:34→20:27)
[2024-09-19] MEDS: MS CONTIN (EXTENDED RELEASE) 15 MG PO ×2 (07:34→20:27)
[2024-09-19] MEDS: OCEAN, SALINE MIST 2 SPRAYS NASAL ×4 (07:34→21:06)
[2024-09-19] MEDS: MIRALAX 17 GRAMS PO (07:35)
[2024-09-19 09:04] LABS: Hematocrit 43.2 % (37.0-47.0); Hemoglobin 14.9 g/dL (12.0-16.0); Mean Corp Hgb Conc. 34.5 g/dL (33.0-37.0); Mean Corpuscular Volume 92.3 fL (81.0-99.0); Platelet Count 193 10^3/uL (130-400); Red Cell Dist. Width 12.2 % (11.5-14.5)
--- NOTE | 2024-09-19 09:51 | CON.PUL ---
Consultation
Consultation Request
Date/Time Consultation Requested: 09/19/2024-7:30 AM
Date/Time Consultation Performed: 09/19/2024-8 AM
Requesting Provider: Hospitalist
Performing Provider: Dr. Soriano
Reason for Consultation: Pill aspiration and pneumonia
Medical History
-
Chief Complaint: Shortness of breath
History of Present Illness:
69-year-old former smoking female with a history of schizophrenia, reflux, IBS, hysterectomy and hernia repair presenting with shortness of breath following an aspiration event at home involving her morning pill medication-pulmonary consulted for
pneumonia and aspiration of the lastpill 09/19/2024.. The patient states that she has some wheezing and some shortness of breath. She states that she had a coughing fit this morning and coughed up a 'white pill'. She denies any shortness of
breath, chest pain, abdominal pain, leg swelling.
Past Medical History
Past Medical History: None (Schizophrenia. Arthritis. Irritable bowels. Hysterectomy. Hernia repair. Former smoker. Ovarian cancer. GERD. Depression. Chronic pain syndrome. Fibroid tumor removal. Left axillary lipoma excision. C-spine
fusion. Left inguinal hernia repair. Chemo-Port placement.)
Social History
Tobacco: Former Smoker (Less than 15-[id number]-ffes quit many years ago)
Alcohol: None
Drug: None
Personal: Single
Employment: Retired
Occupational Exposures: No known asbestos exposure
Environmental Exposures: No known tuberculosis exposure
Family History
Family History: Reviewed & Not Pertinent
Allergies / Home Medications
Allergies
Allergy/AdvReac Type Severity Reaction Status Date / Time
cat dander Allergy Unknown Verified 09/17/24 09:41
gluten Allergy Unknown Verified 09/17/24 09:41
iodine Allergy Unknown Verified 09/17/24 09:41
Phenothiazines Allergy Unknown Verified 09/17/24 09:41
shellfish derived Allergy Unknown Verified 09/17/24 09:41
tetracycline Allergy Unknown Verified 09/17/24 09:41
Home Medications
�Medication �Instructions �Recorded �Confirmed �Last Taken �Type
aripiprazole 10 mg tablet 10 mg PO HS Mental Health/Anxiety 01/07/24 09/17/24 03/19/24 21:00 History
docusate sodium 100 mg capsule 100 mg PO BIDPRN PRN constipation 01/07/24 09/17/24 03/20/24 07:00 History
fluticasone propionate 50 1 spray intranasal DAILY Allergies 01/07/24 09/17/24 09/17/24 History
mcg/actuation nasal
spray,suspension
gabapentin 100 mg capsule 100 mg PO HS Neurological Condition 01/07/24 09/17/24 03/19/24 21:00 History
loratadine 10 mg tablet 10 mg PO DAILY Allergies 01/07/24 09/17/24 09/17/24 History
lorazepam 0.5 mg tablet 0.5 mg PO BID Mental Health/Anxiety 01/07/24 09/17/24 09/17/24 History
lubiprostone 8 mcg capsule 8 mcg PO BID Gastrointestinal Issue 01/07/24 09/17/24 09/17/24 History
memantine 10 mg tablet 10 mg PO BID Mental Health/Anxiety 01/07/24 09/17/24 09/17/24 History
polyethylene glycol 3350 17 gram 17 g PO DAILY constipation 01/07/24 09/17/24 09/17/24 History
oral powder packet
lidocaine 4 %-menthol 4 % topical 1 patch topical DAILY back of neck 03/18/24 09/17/24 03/19/24 History
patch
mirtazapine 15 mg tablet 22.5 mg PO HS Mental Health/Anxiety 03/18/24 09/17/24 03/19/24 History
sertraline 100 mg tablet 200 mg PO DAILY Depression 03/18/24 09/17/24 09/17/24 History
diclofenac sodium 1.5 % topical 40 drp topical Q6HPRN PRN back of 09/17/24 09/17/24 Unknown History
drops neck pain
meloxicam 15 mg tablet 15 mg PO DAILY Anti-Inflammatory 09/17/24 09/17/24 09/17/24 History
morphine 15 mg tablet,extended 15 mg PO Q12H Pain 09/17/24 09/17/24 09/17/24 History
release
Review of Systems
-
Unable to Obtain full review of systems at this time due to: Other ( per HPI)
Vitals / Labs / Diagnostic Testing
Vital Signs
Temp Pulse Resp BP Pulse Ox
98.2 F 80 18 148/71 93
09/19/24 07:00 09/19/24 07:22 09/19/24 07:22 09/19/24 07:00 09/19/24 07:22
Lab Data
09/19/24 08:22
Diagnostic Testing:
Physical Exam
-
Exam:
Well-nourished and well-developed in no apparent distress
HEENT-atraumatic, normocephalic
Neck-supple, no JVD, no bruit
Heart-regular rate and rhythm-no murmurs, rubs or gallops
Chest with crackles and wheezes posterior right midlung field
Abdomen-soft, nontender, nondistended, no hepatosplenomegaly
Extremities-no cyanosis, clubbing, edema and good peripheral pulses
Integument-intact, no rashes, lesions or ecchymosis
Neurology-alert and oriented, nonfocal motor and sensory exam
Assessment
-
69-year-old former smoking female with a history of schizophrenia, reflux, IBS, hysterectomy and hernia repair presenting with shortness of breath following an aspiration event at home involving her morning pill medication-pulmonary consulted for
pneumonia and aspiration of the pill 09/19/2024.
Pill aspiration 09/17/2024-reports coughing up 'white pill' 09/15/2024
Aspiration pneumonia
Asthma with acute exacerbation
Leukocytosis
Ocochxzdzgkt-xcsb-vqtkn sodium 132
Hyperglycemia-blood sugar 163
Conditions present prior to admission:
Schizophrenia.
Arthritis.
Irritable bowels.
Hysterectomy.
Hernia repair.
Former smoker.
Ovarian cancer.
GERD.
Depression.
Chronic pain syndrome.
Fibroid tumor removal. Left axillary lipoma excision. C-spine fusion. Left inguinal hernia repair. Chemo-Port placement.
Plan
Respiratory decompensation after medication pill aspiration-patient reports having coughing fit this morning and coughing up a 'white pill'
Supplemental oxygen as needed
Aspiration precautions
Nebulizers
Prednisone 40 mg daily
Mucolytic's
Mucus clearing devices
CT chest
Consider bronchoscopy, however, it appears as though the patient coughed up her aspirated medication pill
Check cultures
Empiric antibiotics
Follow radiographically
Monitor blood sugar
Insulin supplementation as needed
DVT prophylaxis-on Lovenox
GI prophylaxis-on pantoprazole
Nutrition
Early mobilization
Outpatient pulmonary follow-up with PFTs, asthma evaluation, follow-up of pneumonia
Diagnostic data:
Chest x-ray 09/17/2024-unremarkable chest
Chest x-ray 09/18/2024-mild right lower lobe pneumonia
CT chest abdomen and pelvis/-no evidence for metastatic disease in the chest abdomen or pelvis, left-sided Port-A-Cath placed left subclavian, chronic scarring in the lingula, no solid pulmonary nodules
CT abdomen and pelvis 01/07/2024-diffuse mildly prominent fluid-filled loops of small bowel, diverticulosis,
Data Reviewed
-
EKG: Report reviewed by me
Radiology: Image personally visualized and interpreted and Report reviewed by me
Medical Tests (Nuc Med, Echo etc): Report reviewed by me
Labs: Labs reviewed by me
Old Records: Reviewed
Total Time Spent with Patient (in minutes): 60
--- NOTE | 2024-09-19 10:36 | PTOTSP ---
pt currently requires no assistance to complete simple ADLs, functional transfers, ambulation. no overt deficits, weakness noted. no acute OT needs identified, will sign off.
[2024-09-19 10:45] LABS: Blood Urea Nitrogen 17 mg/dl (7-17); Calcium 9.9 mg/dl (8.4-10.2); Carbon Dioxide 25 mmol/L (22-30); Chloride 97 mmol/L (98-107); Estimated Creatinine Clearance 72 ml/min; Glucose 163 mg/dl (70-99); Magnesium 1.6 mg/dl (1.6-2.3); Potassium 3.8 mmol/L (3.5-5.1); Sodium 132 mmol/L (135-145); eGFR > 60.00
[2024-09-19] MEDS: DELTASONE 40 MG PO (11:37)
--- NOTE | 2024-09-19 12:20 | PN.CDI ---
CDI
- -
CDI:
Physician Documentation Request
Admit Date: 09/17/24 16:58
Dear Doctor Tobin,
Clinical Indicators:
Patient admitted with aspiration event.
09/17 ED report, 'Patient in moderate respiratory distress'
09/17 H & P, ROS: SOB wheezing
Sa02 on admission:
09/17/24
12:35 09/17/24
14:45 09/17/24
16:45
SaO2 90 90 90
02 requirements on admission:
09/17/24
17:48 09/17/24
18:28 09/17/24
19:55
Nasal Cannula flow liters per minute 3 3 3
09/17/24
23:19 09/18/24
07:34
Nasal Cannula flow liters per minute 3 3
Please clarify which of the following accurately represents the patient's respiratory status:
Acute hypoxic respiratory failure
Hypoxia only
Other, please specify
Additional information for Respiratory Failure:
Recognized criteria for Respiratory Failure (Source: Angelique Brooke. 2019 January 16.
Documentation tips: Acute Respiratory Failure, The Hospitalist.)
ABGs: (1 or more) Symptoms Please indicate type if known
1. p)2 <60 or RA SPO2 <91% on RA 1. Tachypnea, SOB, dyspnea Hypoxic
2. pCO2 >45 and pH <7.35 2. Use of accessory muscles Hypercapnic
3. pO2 decrease of pCO2 increase by 3. Pallor or cyanosis Hypoxic and Hypercapnic
10 mmHg from baseline if known 4. Anxiety or restlessness Unable to determine
4. P/F Ratio (pO2/FiO2) less than 300 5. Unable to speak in full sentences
Use of terms such as suspected, likely, concern for, or probable (associated with a specific diagnosis that is being evaluated, monitored, or treated as if it exists) are acceptable and can be coded in the inpatient setting, when documented at the
time of discharge.
Thank you,
MARIZOL Zarate RN
CDI Specialist
available via tiger text
Please use your independent medical judgment in providing your response.
[2024-09-19] MEDS: MOTRIN 200 MG PO (15:25)
[2024-09-19] MEDS: ANESTHETIC LOZENGE 1 LOZENGE PO (15:26)
[2024-09-19] MEDS: LOVENOX SC ×2 (17:09→17:13)
[2024-09-19] MEDS: REMERON 22.5 MG PO (21:00)
[2024-09-19] MEDS: NEURONTIN 100 MG PO (21:00)
[2024-09-19] MEDS: ABILIFY 10 MG PO (21:00)
[2024-09-20 03:01] VITALS: BP 105/53
[2024-09-20 06:51] LABS: Hematocrit 43.1 % (37.0-47.0); Hemoglobin 14.9 g/dL (12.0-16.0); Mean Corp Hgb Conc. 34.6 g/dL (33.0-37.0); Mean Corpuscular Volume 92.3 fL (81.0-99.0); Platelet Count 211 10^3/uL (130-400); Red Cell Dist. Width 12.2 % (11.5-14.5)
[2024-09-20] MEDS: DUONEB 3 ML INH (07:18)
[2024-09-20 07:20] LABS: Blood Urea Nitrogen 19 mg/dl (7-17); Calcium 10.0 mg/dl (8.4-10.2); Carbon Dioxide 26 mmol/L (22-30); Chloride 98 mmol/L (98-107); Estimated Creatinine Clearance 72 ml/min; Glucose 85 mg/dl (70-99); Magnesium 1.7 mg/dl (1.6-2.3); Potassium 4.3 mmol/L (3.5-5.1); Sodium 132 mmol/L (135-145); eGFR > 60.00
[2024-09-20 07:54] VITALS: BP 120/69
[2024-09-20] MEDS: NAMENDA 10 MG PO ×2 (08:26→19:44)
[2024-09-20] MEDS: ATIVAN 0.5 MG PO ×2 (08:26→19:44)
[2024-09-20] MEDS: DELTASONE 40 MG PO (08:26)
[2024-09-20] MEDS: MOBIC 15 MG PO (08:26)
[2024-09-20] MEDS: ZOLOFT 200 MG PO (08:26)
[2024-09-20] MEDS: CLARITIN 10 MG PO (08:26)
[2024-09-20] MEDS: MS CONTIN (EXTENDED RELEASE) 15 MG PO ×2 (08:26→19:44)
[2024-09-20] MEDS: MUCINEX 600 MG PO ×2 (08:26→19:44)
[2024-09-20] MEDS: PROTONIX 40 MG PO (08:26)
[2024-09-20] MEDS: LIDOCAINE 4% PATCH 1 PATCH TOPICAL (08:27)
[2024-09-20] MEDS: OCEAN, SALINE MIST 2 SPRAYS NASAL ×3 (08:27→21:23)
[2024-09-20] MEDS: MIRALAX 17 GRAMS PO (08:27)
[2024-09-20] MEDS: AUGMENTIN 250 MG/5 ML 875 MG PO ×2 (08:29→21:23)
--- NOTE | 2024-09-20 08:33 | W.PN.HOSP.TC ---
Today's Communication/Plan
-
cont abx steroids
dc scheduled nebulizer txs, cont prn
Assessment / Plan
Assessment / Plan
Physical Exam
General: No pallor, cyanosis, or jaundice.
HEENT: Throat clear. PERRLA Normocephalic atraumatic Maxillary sinuses tender to palpation
NECK: Supple. No JVD Carotid Bruits, cervical lymphadenopathy noted
RESPIRATORY: diffusely wheezing on oxygen supplementation
CVS: S1, S2 normal. RRR. No murmur, rub or gallop.
ABDOMEN: Soft, non-tender. No distension. BS+/normal.
EXTREMITIES: No peripheral cyanosis or edema.
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
IMPRESSION:
69F [facility] GERD Schizophrenia Arthritis Chronic Pain IBS Hysterectomy Hernia Repair presents w/ sob wheezing following aspiration event at home involving her morning pill medications. Reported pill 'going down wrong pipe'
resulting in coughing sob wheezing prompting ED evaluation- was in her usual state of health prior to aspiration event. CXR noted no acute abn's. Patient was treated with nebulizer treatments and IV decadron leading to improvement of symptoms
though not resolved. Stable vital signs on oxygen supplementation.
PLAN:
#Pill aspiration event (later reported coughing out the aspirated pill, few days following admission)
#SOB wheezing concerning for reactive airway dz
#Acute hypoxic respiratory failure
#Aspiration PNA
#Sinusitis
#post-nasal drip
#sore throat
Tele admit
denies hx asthma, Former smoker
wean O2 supplementation as tolerated
CXR no acute abn's, follow up repeat in AM noted mild RLL PNA (correlates with aspiration hx)
mild leukocytosis, afebrile, Augmentin 875 mg BID started 09/18
CT chest appreciated RLL consolidation bronchus occlusion, 4mm peripheral lung nodule (follow up CT in 12 mo recommended), Compression fx's T8 (new) and T12 (present since 2021).
Pulroseann burden appreciated no need for bronchoscopy at this time, outpt follow up recommended.
Duoneb R QID albuterol prn
IV Decadron 4 mg Q6h transitioned to PO prednisone 40 mg daily
Incentive Spirometer, Acapella
Speech bertram appreciated appropriate regular diet
aspiration precautions
Cepacol prn
sputum cx
Mucinex, prn Robitussin
[place] mist Nasal spray
Claritin
#Chronic Pain
#Arthritis
cont home PO Morphine Neurontin Meloxicam
prn Tylenol, Ibuprofen
#Schizophrenia
cont home abilify, mirtazapine, ativan, sertraline
#IBS
cont home lubiprostone (patient's own med if necessary)
DVT ppx Lovenox
Full Code
I spent a total of 45 minutes with the patient or on the floor. More than 50% of this time involved counseling and coordination of care.
Anticipated Discharge: 24 - 48 hours
Subjective/Interval History
-
Date of Service: September 20, 2024
reports improvement in overall symptoms, thought generalized weakness/malaise persists. Stable respiratory status on room air.
Objective Data
-
Labs:
Laboratory Results
09/20/24
06:41
WBC 10.0
Hgb 14.9
Hct 43.1
Plt Count 211
Sodium 132 L
Potassium 4.3
Chloride 98
Carbon Dioxide 26
BUN 19 H
Creatinine 0.7
Glucose 85
Calcium 10.0
Vital Signs:
Vital Signs
Temp Pulse Resp BP Pulse Ox
97.6 F 74 16 120/69 93
09/20/24 07:54 09/20/24 07:54 09/20/24 07:54 09/20/24 07:54 09/20/24 07:54
I&O
09/19/24 09/20/24 09/21/24
06:59 06:59 06:59
Intake Total 1919
Balance 1919
--- NOTE | 2024-09-20 09:21 | W.PN.PUL.V3 ---
Today's Communication / Plan
-
Wean oxygen
Antibiotics
Increase activity
Outpatient radiographic and clinical follow-up
Bronchoscopy canceled
Assessment
-
69-year-old former smoking female with a history of schizophrenia, reflux, IBS, hysterectomy and hernia repair presenting with shortness of breath following an aspiration event at home involving her morning pill medication-pulmonary consulted for
pneumonia and aspiration of the pill 09/19/2024.
Pill aspiration 09/17/2024-reports coughing up 'white pill' 09/15/2024
Aspiration pneumonia
Asthma with acute exacerbation
Leukocytosis
Ndmatiygrrlg-lfbh-ylbry sodium 132
Hyperglycemia-blood sugar 163
Conditions present prior to admission:
Schizophrenia.
Arthritis.
Irritable bowels.
Hysterectomy.
Hernia repair.
Former smoker.
Ovarian cancer.
GERD.
Compression fractures
Incidental pulmonary nodule-4 mm right lower lobe-incidentally noted CT chest August 2024
Depression.
Chronic pain syndrome.
Fibroid tumor removal. Left axillary lipoma excision. C-spine fusion. Left inguinal hernia repair. Chemo-Port placement.
Plan
Respiratory decompensation after medication pill aspiration-patient reports having coughing fit 09/19/2024 and coughing up a 'capsule, white pill'
Supplemental oxygen as needed-currently on room air-93% saturation
Aspiration precautions
Nebulizers-DuoNebs 4 times daily
Prednisone 40 mg daily with slow taper
Mucolytic's
Mucus clearing devices
CT chest 09/19/2024-right lower lobe airspace consolidation with occlusion of the right lower lobe bronchus, 4 mm peripheral lung nodule new compared to CT chest 2021, compression fractures T8 and T12
Bronchoscopy considered-reviewed with patient-patient reports coughing up aspirated pill intact 'capsule', feeling better, wants to eat, and bronchoscopy will be canceled and potentially delayed-close outpatient follow-up and if patient does not
improve clinically as well as radiographically we will consider outpatient bronchoscopy for inspection-patient understands there is still potential foreign body in the lungs that might lead extraction-she has a 'sister' that can bring her to the
hospital as an outpatient for procedures if needed-for now recommended follow-up in the office next week
Cultures reviewed
Sputum culture pending-Augmentin continues-
Empiric antibiotics finish a minimum of a 10-day course
Follow radiographically
Monitor blood sugar
Insulin supplementation as needed
DVT prophylaxis-on Lovenox
GI prophylaxis-on pantoprazole
Nutrition
Early mobilization
Outpatient pulmonary follow-up with PFTs, asthma evaluation, follow-up of pneumonia/radiographically and follow-up with pulmonary nodule
Diagnostic data:
Chest x-ray 09/17/2024-unremarkable chest
Chest x-ray 09/18/2024-mild right lower lobe pneumonia
CT chest abdomen and pelvis/-no evidence for metastatic disease in the chest abdomen or pelvis, left-sided Port-A-Cath placed left subclavian, chronic scarring in the lingula, no solid pulmonary nodules
CT abdomen and pelvis 01/07/2024-diffuse mildly prominent fluid-filled loops of small bowel, diverticulosis,
Subjective Data
-
Date of Service:
Date of Service: September 20, 2024
Chief Complaint: Pulmonary Follow Up and Dyspnea Follow Up
Subjective:
She states that she feels better, still has some cough, less mucus production, still has some wheezing, reports coughing fits yesterday and coughing up pill 'capsule' intact in the morning-fluid in the trash-she did not keep for others to see, no
chest pain or abdominal pain, wants to eat
Review of Systems
General: Other (Per HPI)
Objective Data
Data Reviewed
Vital Signs / I&O:
Vital Signs
Temp Pulse Resp BP Pulse Ox
97.6 F 74 16 120/69 93
09/20/24 07:54 09/20/24 07:54 09/20/24 07:54 09/20/24 07:54 09/20/24 07:54
Intake and Output
09/19/24 09/20/24 09/21/24
06:59 06:59 06:59
Intake Total 1919
Balance 1919
SaO2: 93
Nasal Cannula flow liters per minute: 2
Physical Exam
General: Respiratory Distress (n) and Comfortable
HEENT: Normocephalic, Anicteric and Moist Mucous Membranes
Cardiovascular: Regular Rhythm
Respiratory: Wheeze (Expiratory right greater than left), Crackles (Right base), Rhonchi (n), Non-Labored Respirations, Accessory Resp Muscle Use (n) and Stridor
GI: Soft, Non Distended and Non Tender
Neurology: Awake, Alert and No Motor Deficits
Skin: Warm, Good Color, Cyanosis (n), Jaundice (n) and Rash (n)
Labs/Micro/Reports
Lab Data
09/20/24 06:41
09/20/24 06:41
Microbiology
09/19/24 05:07 Sputum Gram Stain - Preliminary
--- NOTE | 2024-09-20 10:37 | CM ---
Patient seen at bedside
CT scan completed yesterday
PLAN: Assisted Living when stable
Report: [phone] Fax #: [phone]
states sister will transport
[2024-09-20 15:13] VITALS: BP 141/73
[2024-09-20] MEDS: LOVENOX 40 MG SC (17:49)
[2024-09-20] MEDS: OCEAN, SALINE MIST NASAL (17:49)
[2024-09-20] MEDS: NEURONTIN 100 MG PO (21:22)
[2024-09-20] MEDS: REMERON 22.5 MG PO (21:22)
[2024-09-20] MEDS: ABILIFY 10 MG PO (21:23)
[2024-09-20 23:14] VITALS: BP 122/63
[2024-09-21 07:00] VITALS: BP 143/79
[2024-09-21] MEDS: LIDOCAINE 4% PATCH 1 PATCH TOPICAL (08:06)
[2024-09-21] MEDS: DELTASONE 30 MG PO (08:06)
[2024-09-21] MEDS: PROTONIX 40 MG PO (08:07)
[2024-09-21] MEDS: CLARITIN 10 MG PO (08:07)
[2024-09-21] MEDS: MOBIC 15 MG PO (08:07)
[2024-09-21] MEDS: ATIVAN 0.5 MG PO (08:07)
[2024-09-21] MEDS: MS CONTIN (EXTENDED RELEASE) 15 MG PO (08:07)
[2024-09-21] MEDS: ZOLOFT 200 MG PO (08:07)
[2024-09-21] MEDS: NAMENDA 10 MG PO (08:07)
[2024-09-21] MEDS: MUCINEX 600 MG PO (08:07)
[2024-09-21] MEDS: OCEAN, SALINE MIST 2 SPRAYS NASAL (08:08)
[2024-09-21] MEDS: MIRALAX PO (08:12)
--- NOTE | 2024-09-21 08:36 | W.PN.HOSP.TC ---
Today's Communication/Plan
-
discharge
Assessment / Plan
Assessment / Plan
Physical Exam
General: No pallor, cyanosis, or jaundice.
HEENT: Throat clear. PERRLA Normocephalic atraumatic Maxillary sinuses tender to palpation
NECK: Supple. No JVD Carotid Bruits, cervical lymphadenopathy noted
RESPIRATORY: diffusely wheezing on oxygen supplementation
CVS: S1, S2 normal. RRR. No murmur, rub or gallop.
ABDOMEN: Soft, non-tender. No distension. BS+/normal.
EXTREMITIES: No peripheral cyanosis or edema.
GAME PRESERVE MANAGER: AOx3 conversant coherent
IMPRESSION:
69F [facility] GERD Schizophrenia Arthritis Chronic Pain IBS Hysterectomy Hernia Repair presents w/ sob wheezing following aspiration event at home involving her morning pill medications. Reported pill 'going down wrong pipe'
resulting in coughing sob wheezing prompting ED evaluation- was in her usual state of health prior to aspiration event. CXR noted no acute abn's. Patient was treated with nebulizer treatments and IV decadron leading to improvement of symptoms
though not resolved. Stable vital signs on oxygen supplementation.
PLAN:
#Pill aspiration event (later reported coughing out the aspirated pill, few days following admission)
#SOB wheezing concerning for reactive airway dz
#Acute hypoxic respiratory failure
#Aspiration PNA
#Sinusitis
#post-nasal drip
#sore throat
Tele admit
denies hx asthma, Former smoker
wean O2 supplementation as tolerated
CXR no acute abn's, follow up repeat in AM noted mild RLL PNA (correlates with aspiration hx)
mild leukocytosis, afebrile, Augmentin 875 mg BID started 09/18
CT chest appreciated RLL consolidation bronchus occlusion, 4mm peripheral lung nodule (follow up CT in 12 mo recommended), Compression fx's T8 (new) and T12 (present since 2021).
[place] burden appreciated no need for bronchoscopy at this time, outpt follow up recommended.
Duoneb R QID completed, has not required prn nebulizer treatment
albuterol prn
IV Decadron 4 mg Q6h transitioned to PO prednisone 40 mg daily further tapered to 30 mg at time of discharge.
Incentive Spirometer, Acapella
Speech eval appreciated appropriate regular diet
aspiration precautions
Cepacol prn
Mucinex, prn Robitussin
[place] mist Nasal spray
Claritin
#Chronic Pain
#Arthritis
cont home PO Morphine Neurontin Meloxicam
prn Tylenol, Ibuprofen
#Schizophrenia
cont home abilify, mirtazapine, ativan, sertraline
#IBS
cont home lubiprostone (patient's own med if necessary)
DVT ppx Lovenox
Full Code
Medically stable for discharge home assisted living with outpatient follow up recommendations.
Total Time Preparing Discharge __40 minutes including examination of the patient, summary of the hospital stay, instructions for continuing care to all relevant caregivers; and preparation of discharge records, prescriptions, and referral
forms if necessary.
Anticipated Discharge: Today
Subjective/Interval History
-
Date of Service: September 21, 2024
No acute distress. Had an episode of diarrhea for which she received Imodium. Otherwise reports feeling relatively well, wants to go home.
Objective Data
-
Vital Signs:
Vital Signs
Temp Pulse Resp BP Pulse Ox
98.0 F 84 17 143/79 94
09/21/24 07:00 09/21/24 07:00 09/21/24 07:00 09/21/24 07:00 09/21/24 07:00
I&O
09/20/24 09/21/24 09/22/24
06:59 06:59 06:59
Intake Total 2200 / 2200 690 / 690
Balance 2200 / 2200 690 / 690
--- NOTE | 2024-09-21 10:25 | W.PN.PUL3 ---
Today's Communication / Plan
-
Antibiotics
Up OOB as tolerated
Outpatient radiographic and clinical follow-up
Bronchoscopy canceled
Patient is being prepared for discharge home today. No additional recommendations at this time. Pulmonary service will now sign off. Please reconsult if there are any additional questions/concerns, or if patient's respiratory status deteriorates.
Assessment
-
69-year-old former smoking female with a history of schizophrenia, reflux, IBS, hysterectomy and hernia repair presenting with shortness of breath following an aspiration event at home involving her morning pill medication-pulmonary consulted for
pneumonia and aspiration of the pill 09/19/2024.
Pill aspiration 09/17/2024-reports coughing up 'white pill' 09/15/2024
Aspiration pneumonia
Asthma with acute exacerbation
Leukocytosis � now resolved as of 09/20
Hyponatremia
Conditions present prior to admission:
Schizophrenia.
Arthritis.
Irritable bowels.
Hysterectomy.
Hernia repair.
Former smoker.
Ovarian cancer.
GERD.
Compression fractures
Incidental pulmonary nodule-4 mm right lower lobe-incidentally noted CT chest August 2024
Depression.
Chronic pain syndrome.
Fibroid tumor removal. Left axillary lipoma excision. C-spine fusion. Left inguinal hernia repair. Chemo-Port placement.
Plan
Respiratory decompensation after medication pill aspiration-patient reports having coughing fit 09/19/2024 and coughing up a 'capsule, white pill'
Supplemental oxygen as needed-currently on room air-95% saturation
Aspiration precautions
Nebulized albuterol if needed
Prednisone with slow taper � currently on 30 mg daily
Mucolytics
Mucus clearing devices
CT chest 09/19/2024-right lower lobe airspace consolidation with occlusion of the right lower lobe bronchus, 4 mm peripheral lung nodule new compared to CT chest 2021, compression fractures T8 and T12
Bronchoscopy considered-reviewed with patient-patient reports coughing up aspirated pill intact 'capsule', feeling better, wants to eat, and bronchoscopy was canceled - Dr. Soriano rec'd close outpatient follow-up and if patient does not improve
clinically as well as radiographically we will consider outpatient bronchoscopy for inspection-patient understands there is still potential foreign body in the lungs that might need extraction-she has a 'sister' that can bring her to the hospital as
an outpatient for procedures if needed-for now recommended follow-up in the office next week
Cultures reviewed
Sputum culture collected on 09/19/2024 shows usual respiratory pilar-Augmentin continues
Empiric antibiotics finish a minimum of a 10-day course
Follow radiographically
Monitor blood sugar with goal GB >100 and <180mg/dL
Insulin supplementation as needed
DVT prophylaxis-on Lovenox
GI prophylaxis-on pantoprazole
Nutrition
Early mobilization
Outpatient pulmonary follow-up will be arranged with PFTs, asthma evaluation, follow-up of pneumonia/radiographically and follow-up with pulmonary nodule.
Patient is being prepared for discharge home today. No additional recommendations at this time. Pulmonary service will now sign off. Thank you for allowing us to be involved in the care of this patient. Please reconsult if there are any
additional questions/concerns, or if patient's respiratory status deteriorates.
Diagnostic data:
Chest x-ray 09/17/2024-unremarkable chest
Chest x-ray 09/18/2024-mild right lower lobe pneumonia
CT chest abdomen and pelvis/-no evidence for metastatic disease in the chest abdomen or pelvis, left-sided Port-A-Cath placed left subclavian, chronic scarring in the lingula, no solid pulmonary nodules
CT abdomen and pelvis 01/07/2024-diffuse mildly prominent fluid-filled loops of small bowel, diverticulosis
Total time spent today was 29 minutes for this encounter. Time includes reviewing laboratory test/imaging results, reviewing pertinent medical records, obtaining and reviewing medical history, performing an appropriate exam, ordering medications,
tests and procedures. Time also includes documentation of this encounter, coordinating patient care and communicating with other healthcare professionals. Total time does not include separately billed tests performed on this date of service.
Subjective Data
-
Date of Service:
Date of Service: September 21, 2024
Chief Complaint: Pulmonary Follow Up and Dyspnea Follow Up
Subjective:
Patient seen today at bedside. No acute distress. Feels well, eager to go home. Diarrhea overnight, treated with Imodium.
Review of Systems
General: Other (Negative unless mentioned above)
Objective Data
Data Reviewed
Vital Signs / I&O / Oxygen:
Vital Signs
Temp Pulse Resp BP Pulse Ox
98.0 F 84 17 143/79 94
09/21/24 07:00 09/21/24 07:00 09/21/24 07:00 09/21/24 07:00 09/21/24 07:00
Intake and Output
09/20/24 09/21/24 09/22/24
06:59 06:59 06:59
Intake Total 2200 / 2200 690 / 690
Balance 2200 / 2200 690 / 690
SaO2 94
Nasal Cannula flow liters per 2
minute
Physical Exam
General: Respiratory Distress (n) and Comfortable
HEENT: Normocephalic, Anicteric and Moist Mucous Membranes
Cardiovascular: Regular Rhythm
Respiratory: Wheeze (Expiratory right greater than left), Crackles (Right base), Rhonchi (n), Non-Labored Respirations, Accessory Resp Muscle Use (n) and Stridor
GI: Soft, Non Distended and Non Tender
Neurology: Awake, Alert and No Motor Deficits
Skin: Warm, Good Color, Cyanosis (n), Jaundice (n) and Rash (n)
Labs/Micro/Reports
Lab Data
09/20/24 06:41
09/20/24 06:41
Microbiology
09/19/24 05:07 Sputum Respiratory Culture - Preliminary
Usual Respiratory Pilar
09/19/24 05:07 Sputum Gram Stain - Preliminary
[2024-09-21] MEDS: AUGMENTIN 250 MG/5 ML 875 MG PO (10:46)
--- NOTE | 2024-09-21 11:43 | CM ---
Addendum entered by Antonia Alford 09/21/24 13:01:
sister to transport
Addendum entered by Antonia Alford 09/21/24 12:59:
patient discharge today - spoke with Cyndi at [facility]
IMM explained & signed. In chart
PLAN: Assisted Living today
Report: [phone] ASK FOR CYNDI NURSE Fax #: [phone]
Original Note:
Patient seen at bedside
bronch cancel
patient from [facility]
PLAN: Assisted Living when stable
Report: [phone] Fax #: [phone]
[2024-09-21] MEDS: IMODIUM 2 MG PO (12:33)
--- NOTE | 2024-09-21 13:03 | W.DCSUMMARY ---
Discharge Summary
Discharge Data
Date of Admission: 09/17/24
Date of Discharge: 09/21/24
-
Pending Results: No
Hospital Course
69[facility] GERD Schizophrenia Arthritis Chronic Pain IBS Hysterectomy Hernia Repair presents w/ sob wheezing following aspiration event at home involving her morning pill medications. Reported pill 'going down wrong pipe'
resulting in coughing sob wheezing prompting ED evaluation- was in her usual state of health prior to aspiration event. CXR noted no acute abn's. Patient was treated with nebulizer treatments and IV Decadron leading to improvement of symptoms
though not resolved. Stable vital signs on oxygen supplementation. Pill aspiration event (later reported coughing out the aspirated pill, few days following admission). SOB wheezing concerning for reactive airway dz. Acute hypoxic respiratory
failure since resolved. Aspiration PNA. Sinusitis. Post-nasal drip. Sore throat. Denied hx asthma, former smoker. Weaned off oxygen supplementation to room air. CXR noted no acute abn's, follow up repeat in AM noted mild RLL PNA (correlates
with aspiration hx)
Mild leukocytosis, afebrile, Augmentin 875 mg BID started 09/18. CT chest appreciated RLL consolidation bronchus occlusion, 4mm peripheral lung nodule (follow up CT in 12 mo recommended), Compression fx's T8 (new) and T12 (present since 2021).
[place] burden appreciated no need for bronchoscopy at this time, outpt follow up recommended. [place] TIRADO completed, has not required prn nebulizer treatment. IV Decadron 4 mg Q6h transitioned to PO prednisone 40 mg daily further tapered to 30 mg at
time of discharge. Incentive Spirometer, Acapella. Speech eval appreciated appropriate regular diet. Medically stable, patient was discharged home with outpatient follow up recommendations.
Discharge Plan
-
Patient Disposition: Home (Routine Discharge)
Discharge Diagnosis/Procedures: Aspiration Pneumonia
Pill aspiration
Reactive Airway Disease
Sinusitis
post-nasal drip
Condition: Fair
Diet: Other diet
Additional Diets: Gluten Free diet
Activity: As tolerated
Driving Restrictions: As prior to admission
Bathing Restrictions: None
Others Tests: Follow up with Pulmonology for repeat outpatient imaging, possible bronchoscopy, and/or pulmonary function testing.
Activity Restrictions/Additional Instructions:
Follow up with pulmonology in 3-4 days of discharge and primary care provider in 1 week of discharge.
Augmentin prescribed for aspiration pneumonia. 09/27/24 last day for antibiotics.
Probiotic has been prescribed to promote gut health while on broad-spectrum antibiotics as above. ok to discontinue when not taking antibiotics. This medication is available over the counter.
Mucinex prescribed for cough, this is available over the counter.
Prednisone taper prescribed for reactive airway disease triggered by aspiration:
30 mg daily x 3, then 20 mg daily x 3, then 10 mg daily x3, then stop.
Protonix has been prescribed for GI prophylaxis while on steroids. Ok to discontinue when off steroids.
Please take medications as prescribed/recommended and follow up with primary care provider and/or other healthcare provider involved in your care for refills and/or further adjustment to your medication regimen as necessary.
Referrals:
SUSAN LINARES MD [Family Provider, Internal Medicine] - in one week
Carlos Soriano MD [Active, Pulmonary Medicine] - in three to four days
Referral Note: Aspirated medication pill/pneumonia, radiographic follow-up, potential need for outpatient bronchoscopy
Prescriptions:
New
amoxicillin-pot clavulanate 250-62.5 mg/5 mL Suspension For Reconstitution
17.5 ml PO Q12 6 Days Qty: 210 0RF
Rx Instructions:
09/27/2024 last day for antibiotics.
guaifenesin 600 mg Tablet Extended Release 12hr
600 mg PO Q12 7 Days Qty: 14 0RF
pantoprazole 40 mg Tablet,Delayed Release (Dr/Ec)
40 mg PO DAILY Qty: 9 0RF
Rx Instructions:
GI prophylaxis while on steroids.
Ok to stop when off steroids
prednisone 10 mg Tablet
See Rx Instructions .ROUTE .COMPLEX Qty: 18 0RF
Rx Instructions:
Take By Mouth:
30 mg daily x3 days,
20 mg daily x3 days, 10 mg daily x3 days.
Saccharomyces boulardii [Florastor] 250 mg capsule
250 mg PO BID 7 Days Qty: 14 0RF
Continued
polyethylene glycol 3350 17 gram Powder In Packet
17 g PO DAILY
lorazepam 0.5 mg Tablet
0.5 mg PO BID
docusate sodium 100 mg Capsule
100 mg PO BIDPRN PRN (Reason: constipation)
gabapentin 100 mg Capsule
100 mg PO HS
fluticasone propionate 50 mcg/actuation [place],Suspension
1 spray INTRANASAL DAILY
loratadine 10 mg Tablet
10 mg PO DAILY
aripiprazole 10 mg Tablet
10 mg PO HS
memantine 10 mg Tablet
10 mg PO BID
lubiprostone 8 mcg Capsule
8 mcg PO BID
mirtazapine 15 mg tablet
22.5 mg PO HS
lidocaine-menthol 4-4 % Adhesive Patch,Medicated
1 patch TOPICAL DAILY
sertraline 100 mg tablet
200 mg PO DAILY
morphine 15 mg Tablet Extended Release
15 mg PO Q12H
diclofenac sodium 1.5 % Drops
40 drp TOPICAL Q6HPRN PRN (Reason: back of neck pain)
meloxicam 15 mg Tablet
15 mg PO DAILY
Discharge Orders:
Discharge Patient (As Directed); Ordered 09/21/24
Ordered By: Leah Rudd
Discharge Date and Time
Discharge Date/Time: 09/21/24 14:34
Print Language: JORDANIAN
[2024-09-21] MEDS: OCEAN, SALINE MIST NASAL (13:11)
[2024-09-21] MEDS: FLORASTOR 250 MG PO (13:13)
[2024-09-21 13:51] VITALS: BP 136/75
== END 2024-09-21 14:34 | disposition home or self-care (01) | DRG 205 ==
LOC: 3 WEST ACU 16:58
PROVIDERS: ADMITTING PHYSICIAN Internal Medicine; EMERGENCY PHYSICIAN Emergency Medicine; FAMILY PHYSICIAN Internal Medicine; OTHER PHYSICIAN Internal Medicine Critical Care Medicine
DX: T17.898A Other foreign object in other parts of respiratory tract causing other injury, initial encounter (principal); J69.0 Pneumonitis due to inhalation of food and vomit; J96.01 Acute respiratory failure with hypoxia; E87.1 Hypo-osmolality and hyponatremia; F20.0 Paranoid schizophrenia; J45.901 Unspecified asthma with (acute) exacerbation; Z79.899 Other long term (current) drug therapy; W44.8XXA Other foreign body entering into or through a natural orifice, initial encounter; M19.90 Unspecified osteoarthritis, unspecified site; K58.9 Irritable bowel syndrome, unspecified; D72.829 Elevated white blood cell count, unspecified; J32.9 Chronic sinusitis, unspecified; F32.A Depression, unspecified; K21.9 Gastro-esophageal reflux disease without esophagitis; Z87.891 Personal history of nicotine dependence
CPT/HCPCS: 71045; 71046; 71250; 80048; 80053; 82248; 83735; 83880; 84100; 84484; 85025; 85027; 87070; 87205; 92526; 92610; 93005; 94640; 94644; 94760; 96374; 97161; 97165; 99285